=== PATIENT | male | born 1970 | race Caucasian/White ===

== ENCOUNTER 2019-01-19 16:46 | Emergency (ER) | payer BC ==
--- NOTE | 2019-01-19 17:08 | EDM.PDOC ---
ED HPI GENERAL MEDICAL PROBLEM - General Chief Complaint: Lower Extremity Injury/Pain Stated Complaint: TOE NAIL HALF OF ON RT FT Time Seen by Provider: 01/19/19 16:48 - History of Present Illness INITIAL COMMENTS - FREE TEXT/NARRATIVE: HISTORY AND PHYSICAL: History of present illness: Patient 48-year-old male presents with concern of near avulsion of the nail of the first digit of his right foot that occurred when he stubbed his toe he denies any other significant trauma other than the elevation of the nail which clearly has had a significant fungal infection that has been problematic for patient he is eager to have this nail removed. Review of systems: As per history of present illness and below otherwise all systems reviewed and negative. Past medical history: As per history of present illness and as reviewed below otherwise noncontributory. Surgical history: As per history of present illness and as reviewed below otherwise noncontributory. Social history: No reported history of drug or alcohol abuse. Family history: As per history of present illness and as reviewed below otherwise noncontributory. Physical exam: HEENT: Atraumatic, normocephalic, pupils reactive, negative for conjunctival pallor or scleral icterus, mucous membranes moist, throat clear, neck supple, nontender, trachea midline. Lungs: Clear to auscultation, breath sounds equal bilaterally, chest nontender. Heart: S1S2, regular, negative for clicks, rubs, or JVD. Abdomen: Soft, nondistended, nontender. Negative for masses or hepatosplenomegaly. Negative for costovertebral tenderness. Pelvis: Stable nontender. Genitourinary: Deferred. Rectal: Deferred. Extremities: Obvious fungal infection noted on the first nail of his right foot with significant elevation in near total avulsion. Neurovascular exam is unremarkable Neuro: Awake, alert, oriented. Cranial nerves II through XII unremarkable. Cerebellum unremarkable. Motor and sensory unremarkable throughout. Exam nonfocal. Diagnostics: None Therapeutics: Patient had a digital block with 1% lidocaine nail was removed the first digit wound was irrigated and dressed with a bulky bacitracin dressing Impression: #1 right foot injury with nail avulsion Definitive disposition and diagnosis as appropriate pending reevaluation and review of above. Right Great Toe Pain Score (Numeric/FACES): 4 - Related Data Allergies Allergy/AdvReac Type Severity Reaction Status Date / Time No Known Allergies Allergy Verified 01/19/19 17:01 Home Meds: Home Meds . [No Known Home Meds] 01/19/19 [History] Past Medical History - Past Surgical History GI Surgical History: Reports: Appendectomy Social & Family History - Tobacco Use Smoking Status *Q: Current Every Day Smoker Years of Tobacco use: 20 Packs/Tins Daily: 1 - Alcohol Use Days Per Week of Alcohol Use: 4 Number of Drinks Per Day: 3 Total Drinks Per Week: 12 - Recreational Drug Use Recreational Drug Use: No Review of Systems - Review of Systems Review Of Systems: ROS reveals no pertinent complaints other than HPI. ED EXAM, GENERAL - Physical Exam Exam: See Below (The dictation) Course - Vital Signs Last Recorded V/S: Last Vital Signs Temp 36.2 C 01/19/19 16:58 Pulse 102 H 01/19/19 16:58 Resp 16 01/19/19 16:58 BP 168/104 H 01/19/19 16:58 Pulse Ox 93 L 01/19/19 16:58 - Orders/Labs/Meds Meds: Medications Discontinued Medications Generic Name Dose Route Start Last Admin Trade Name Karly PRN Reason Stop Dose Admin Lidocaine HCl Confirm 01/19/19 17:01 Xylocaine-Mpf 1% Administered 01/19/19 17:02 Dose 10 mls @ as directed .ROUTE .STK-MED ONE Lidocaine HCl 10 ml 01/19/19 17:00 Xylocaine-Mpf 1% INJECT 01/19/19 17:01 ONETIME ONE Departure - Departure Time of Disposition: 17:07 Disposition: Home, Self-Care 01 Condition: Good Clinical Impression: Foot injury, Nail avulsion of toe - Discharge Information Referrals: PCP,None [Primary Care Provider] - Additional Instructions: The following information is given to patients seen in the emergency department who are being discharged to home. This information is to outline your options for follow-up care. We provide all patients seen in our emergency department with a follow-up referral. The need for follow-up, as well as the timing and circumstances, are variable depending upon the specifics of your emergency department visit. If you don't have a primary care physician on staff, we will provide you with a referral. We always advise you to contact your personal physician following an emergency department visit to inform them of the circumstance of the visit and for follow-up with them and/or the need for any referrals to a consulting specialist. The emergency department will also refer you to a specialist when appropriate. This referral assures that you have the opportunity for followup care with a specialist. All of these measure are taken in an effort to provide you with optimal care, which includes your followup. Under all circumstances we always encourage you to contact your private physician who remains a resource for coordinating your care. When calling for followup care, please make the office aware that this follow-up is from your recent emergency room visit. If for any reason you are refused follow-up, please contact the [facility] emergency department at and asked to speak to the emergency department charge nurse. [facility] - Podiatry [address] [place] [id number] Fax: [phone] Follow-up podiatry as discussed in care as discussed will consist abdominal hysterectomy return as needed as discussed
[2019-01-19] MEDS ORDERED: Bacitracin Oint 1 GM U/D Packet TOP ONE (17:16)
== END 2019-01-19 18:16 | disposition home or self-care (01) ==
LOC: MW.ED 16:46
DX: S91.201A Unspecified open wound of right great toe with damage to nail, initial encounter (principal); F17.210 Nicotine dependence, cigarettes, uncomplicated; W22.8XXA Striking against or struck by other objects, initial encounter
CPT/HCPCS: 11730; 99282; J2001

== ENCOUNTER 2019-07-05 07:04 | Day surgery (SDC) | payer BC ==
[~2019-07-05 07:04] MED LIST: Lactated Ringers 1,000 ML IV SCH; ceFAZolin 2 GM in Premix Bag 1 BAG IV SCH
[2019-07-05] MEDS ORDERED: ceFAZolin 1 GM Vial ONE ×2 (07:21→07:46)
[2019-07-05] MEDS ORDERED: Bupivacaine 0.5% 10 ML SDV ONE (07:21)
[2019-07-05] MEDS ORDERED: Propofol 200 MG/20 ML SDV ONE (07:22)
[2019-07-05] MEDS ORDERED: Midazolam 1 MG/ML 2 ML SDV ONE (07:22)
[2019-07-05] MEDS ORDERED: fentaNYL 100 MCG/2 ML SDV ONE (07:22)
[2019-07-05] MEDS ORDERED: Dexamethasone 4 MG/ML 5 ML MDV ONE (07:25)
[2019-07-05] MEDS ORDERED: Ondansetron 4 MG/2 ML SDV ONE (07:25)
--- NOTE | 2019-07-05 07:32 | PCM.PREANE ---
Preanesthetic Assessment - Anesthesia/Transfusion/Family Hx Anesthesia History: Prior Anesthesia Without Reaction Family History of Anesthesia Reaction: No Transfusion History: No Prior Transfusion(s) - Review of Systems General: No Symptoms Pulmonary: No Symptoms Cardiovascular: No Symptoms Gastrointestinal: No Symptoms Neurological: No Symptoms Other: Reports: None - Physical Assessment Vital Signs: Last Vital Signs Temp 97.5 F 07/05/19 07:19 Pulse 102 H 07/05/19 07:19 Resp 14 07/05/19 07:19 BP 133/87 07/05/19 07:19 Pulse Ox 96 07/05/19 07:19 Height: 5 ft 8 in Weight: 79.379 kg ASA Class: 2 Mental Status: Alert & Oriented x3 Airway Class: Mallampati = 2 Dentition: Reports: Normal Dentition ROM/Head Extension: Full Lungs: Clear to Auscultation, Normal Respiratory Effort Cardiovascular: Regular Rate, Regular Rhythm - Allergies Allergies/Adverse Reactions: Allergies Allergy/AdvReac Type Severity Reaction Status Date / Time No Known Allergies Allergy Verified 06/30/19 09:39 - Blood Blood Available: No - Anesthesia Plan Pre-Op Medication Ordered: None - Acknowledgements Pt an Appropriate Candidate for the Planned Anesthesia: Yes Alternatives and Risks of Anesthesia Discussed w Pt/Guardian: Yes Pt/Guardian Understands and Agrees with Anesthesia Plan: Yes Additional Comments: PMH: htn under good controll PLAN: GA, prob LMA, ETT if surgeon requests PreAnesthesia Questionnaire HEENT History: Reports: Other (See Below) Other HEENT History: wears glasses Cardiovascular History: Reports: Hypertension Respiratory History: Reports: None Gastrointestinal History: Reports: GERD Genitourinary History: Reports: None Musculoskeletal History: Reports: None Neurological History: Reports: Concussion Psychiatric History: Reports: None Endocrine/Metabolic History: Reports: None Hematologic History: Reports: None Immunologic History: Reports: None Oncologic (Cancer) History: Reports: None Dermatologic History: Reports: None - Past Surgical History Head Surgeries/Procedures: Reports: None HEENT Surgical History: Reports: None Cardiovascular Surgical History: Reports: None Respiratory Surgical History: Reports: None GI Surgical History: Reports: Appendectomy, Colonoscopy Male Surgical History: Reports: None Endocrine Surgical History: Reports: None Neurological Surgical History: Reports: None Musculoskeletal Surgical History: Reports: None Oncologic Surgical History: Reports: None Dermatological Surgical History: Reports: None - SUBSTANCE USE Smoking Status *Q: Former Smoker Tobacco Use Within Last Twelve Months: Cigarettes, Other (See Below) Days Per Week of Alcohol Use: 7 Number of Drinks Per Day: 4 Total Drinks Per Week: 28 - HOME MEDS Home Medications: Home Meds Losartan/Hydrochlorothiazide [Losartan-HCTZ 100-25 MG] 1 tab PO DAILY 06/30/19 [ History] Nicotine Polacrilex [Nicotine Lozenge] 1 lozenge PO ASDIRECTED PRN 06/30/19 [ History] Sildenafil Citrate 1 tab PO ASDIRECTED PRN 06/30/19 [History] Calcium Carbonate [Antacid] 1 tab PO ASDIRECTED 07/02/19 [History] - CURRENT (IN HOUSE) MEDS Current Meds: Current Medications Cefazolin Sodium/Dextrose 2 gm (/ Premix) 50 mls @ 100 mls/hr IV ONETIME DAVID Lactated Ringer's (Ringers, Lactated) 1,000 mls @ 125 mls/hr IV ASDIRECTED DAVID Last Admin: 07/05/19 07:27 Dose: 125 mls/hr Discontinued Medications Bupivacaine HCl (Sensorcaine-Mpf 0.5%) Confirm Administered Dose 10 ml .ROUTE .STK-MED ONE Stop: 07/05/19 07:22 Cefazolin Sodium (Ancef) Confirm Administered Dose 1 gm .ROUTE .STK-MED ONE Stop: 07/05/19 07:22 Dexamethasone (Dexamethasone) Confirm Administered Dose 20 mg .ROUTE .STK-MED ONE Stop: 07/05/19 07:26 Fentanyl (Sublimaze) Confirm Administered Dose 200 mcg .ROUTE .STK-MED ONE Stop: 07/05/19 07:23 Lidocaine HCl (Xylocaine-Mpf 1%) Confirm Administered Dose 5 ml .ROUTE .STK-MED ONE Stop: 07/05/19 07:26 Midazolam HCl (Versed 1 Mg/Ml) Confirm Administered Dose 2 mg .ROUTE .STK-MED ONE Stop: 07/05/19 07:23 Ondansetron HCl (Zofran) Confirm Administered Dose 4 mg .ROUTE .STK-MED ONE Stop: 07/05/19 07:26 Propofol (Diprivan 20 Ml) Confirm Administered Dose 200 mg .ROUTE .STK-MED ONE Stop: 07/05/19 07:23
[2019-07-05] MEDS ORDERED: Sodium Chloride 0.9% 20 ML ONE (07:46)
[2019-07-05] MEDS ORDERED: Phenylephrine/Normal Saline 100 MCG/ML 10 ML Syringe ONE (08:18)
[2019-07-05] MEDS ORDERED: Atropine 0.1 MG/ML 10 ML Syringe IVPUSH PRN ×2 (08:43)
[2019-07-05] MEDS ORDERED: EPINEPHrine 1:10,000 1 MG/10 ML Syringe IVPUSH PRN (08:43)
[2019-07-05] MEDS ORDERED: Naloxone 0.4 MG/ML Syringe IVPUSH PRN (08:43)
[2019-07-05] MEDS ORDERED: 50% Dextrose in Water 50 ML Syringe IVPUSH PRN (08:43)
[2019-07-05] MEDS ORDERED: Albuterol 0.083% 2.5 MG/3 ML Neb Soln NEB PRN (08:43)
[2019-07-05] MEDS ORDERED: fentaNYL 100 MCG/2 ML SDV IVPUSH PRN (08:43)
[2019-07-05] MEDS ORDERED: Acetaminophen/HYDROcodone 325-5 MG Tab PO PRN (09:28)
[2019-07-05] MEDS ORDERED: Lactated Ringers 1,000 ML IV SCH (09:30)
--- NOTE | 2019-07-05 09:39 | PCM.OPNOTE ---
- General Post-Op/Procedure Note Date of Surgery/Procedure: 07/05/19 Operative Procedure(s): Repair of direct right inguinal hernia with large Bard PerFix plug and patch Pre Op Diagnosis: Reducible right inguinal hernia Post-Op Diagnosis: Direct right inguinal hernia Anesthesia Technique: General LMA (ASA II) Primary Surgeon: Herrera Valdez Printing Mechanist: Ольга Hughes Fluid Replacement, Intraop: 1,600 EBL in mLs: 100 Condition: Good Free Text/Narrative:: DICTATION [id number] CPT CODE 57267
--- NOTE | 2019-07-05 09:56 | PCM.POSTAN ---
POST ANESTHESIA ASSESSMENT - MENTAL STATUS Mental Status: Alert, Oriented - VITAL SIGNS Vital Signs: Last Vital Signs Temp 97.9 F 07/05/19 09:29 Pulse 94 07/05/19 09:49 Resp 10 L 07/05/19 09:49 BP 122/81 07/05/19 09:49 Pulse Ox 95 07/05/19 09:49 - RESPIRATORY Respiratory Status: Respiratory Rate WNL, Airway Patent, O2 Saturation Stable - CARDIOVASCULAR CV Status: Pulse Rate WNL, Blood Pressure Stable - GASTROINTESTINAL GI Status: No Symptoms - POST OP HYDRATION Hydration Status: Adequate & Stable
--- NOTE | 2019-07-05 10:16 | OR ---
SURGEON: Herrera Valdez M.D. DATE OF PROCEDURE: 07/05/2019 OPERATION PERFORMED: Repair of direct right inguinal hernia with large Bard PerFix plug and patch. PRIMARY SURGEON: Herrera Valdez MD. MFT: physiotherapy assistant: Dr. Hughes, PGY2. ANESTHESIA: General LMA ASA CLASSIFICATION: II. PREOPERATIVE DIAGNOSIS: Reducible right inguinal hernia. POSTOPERATIVE DIAGNOSIS: Reducible right inguinal hernia. ESTIMATED BLOOD LOSS: 100 mL. INTRAOPERATIVE FLUID REPLACEMENT: 1600 mL of crystalloid. DESCRIPTION OF PROCEDURE: The patient was taken to the operating room, placed on the operating table in the supine position. Sequential compression boots were placed. Time-out was called for appropriate identification of the patient and procedure. Following satisfactory attainment of general anesthesia with placement of an LMA, the abdomen was prepped with DuraPrep solution and sterile drapes were applied. A skin incision was marked out in the right inguinal crease and infiltrated with 0.5% Marcaine solution. The skin incision was made and deepened through the subcutaneous tissue obtaining hemostasis with the use of electrocautery. Dissection was carried down to the external oblique fascia. This was opened in the direction of its fibers. Care was taken to identify and preserve the ilioinguinal nerve which was retracted out of harm's way. With that accomplished, it was obvious the defect was direct. The cord was mobilized and encircled with a [place] drain. The hernia was then dissected away and reduced. A large Bard PerFix plug and patch was brought to the operating table. This was soaked in 1% Ancef solution. The plug was placed into the medial defect and secured with interrupted 0 Ethibond sutures. The patch was placed over this and secured medially and inferiorly to Sonny ligament, transitioning to the inguinal ligament, and superiorly into the transversalis fascia. The wings were brought around the cord laterally. There was some bleeding coming from underneath the inguinal canal and this was controlled with a 3-0 Prolene suture. Care was taken to inspect this area and hold pressure for a minimum of 2 minutes. There was no further bleeding noted. The wound was then irrigated with 1% Ancef solution. All Ethibond sutures had been tied down and the wings brought around the cord laterally. Prior to tying the lateral stitch, the patient was given a Valsalva maneuver to 30 cm of water. The repair was felt solid. The lateral suture was then secured. The cord and ilioinguinal nerve were returned to their anatomic position. The external oblique fascia was closed with running 3-0 Vicryl. Subcutaneous tissue was closed with 3-0 Vicryl through Fred's fascia and the skin edges reapproximated with subcuticular 4-0 Monocryl. The wound was then Steri-Stripped and dressed with a sterile Tegaderm pad. Sponge, needle, and instrument counts were all correct. Following emergence from anesthesia and extubation, the patient was taken to recovery room in stable condition. JAYLYN AMADOR /[id number]
--- NOTE | 2019-07-05 12:05 | PCM48HPAN ---
Post Anesthesia Note - EVALUATION WITHIN 48HRS OF ANESTHETIC Vital Signs in Normal Range: Yes Patient Participated in Evaluation: Yes Respiratory Function Stable: Yes Airway Patent: Yes Cardiovascular Function Stable: Yes Hydration Status Stable: Yes Pain Control Satisfactory: Yes Nausea and Vomiting Control Satisfactory: Yes Mental Status Recovered: Yes Vital Signs: Last Vital Signs Temp 98.6 F 07/05/19 10:00 Pulse 90 07/05/19 11:15 Resp 14 07/05/19 11:15 BP 135/73 07/05/19 11:15 Pulse Ox 95 07/05/19 11:15
== END 2019-07-05 12:12 | disposition home or self-care (01) ==
LOC: MW.SDS 07:04
PROVIDERS: ATTEND Surgery
DX: K40.90 Unilateral inguinal hernia, without obstruction or gangrene, not specified as recurrent (principal); I10 Essential (primary) hypertension; Z79.899 Other long term (current) drug therapy; Z90.49 Acquired absence of other specified parts of digestive tract; Z87.891 Personal history of nicotine dependence
CPT/HCPCS: 49505; A9270; C1781; J0690; J1100; J2001; J2250; J2370; J2405; J2704; J3010; J3490; J7120; 00830

== ENCOUNTER 2020-08-13 16:20 | Emergency (ER) | payer OTHER, BC ==
--- NOTE | 2020-08-13 16:41 | EDM.PDOC ---
ED HPI GENERAL MEDICAL PROBLEM - General Chief Complaint: Lower Extremity Injury/Pain Stated Complaint: FELL INJURY RT LEG HIP AREA Time Seen by Provider: 08/13/20 16:31 - History of Present Illness INITIAL COMMENTS - FREE TEXT/NARRATIVE: History of present illness: [] The patient says he caught his foot on something and tripped. He fell downstairs. He rolled down a flight of stairs and landed at the bottom with a function at that point he was somewhat dazed and says his right hip hurt. He complains of pain in the right hip. He does not have any other significant pain except low anterior abdomen. The patient is not on a blood thinner. He denies head injury or neck injury. He denies injury to his chest or trunk. Review of systems: As per history of present illness and below otherwise all systems reviewed and negative. Past medical history: As per history of present illness and as reviewed below otherwise noncontributory. Surgical history: As per history of present illness and as reviewed below otherwise noncontributory. Social history: No reported history of drug or alcohol abuse. Family history: As per history of present illness and as reviewed below otherwise noncontributory. Physical exam: Constitutional - well developed, well-nourished and in no acute distress HEENT - normocephalic, no evidence of trauma - external nose and mouth normal - no mass in neck and no JVD - mucosae moist EYES - full EOM, PERRL, no icterus - no evidence of inflammation, injection, or drainage Respiratory - no respiratory distress, equal bilateral expansion, lungs clear to auscultation and no abnormal lung sounds Cardiovascular - Regular Rhythm with S1 and S2 appreciated and no murmur, gallop or rub. GI - abdomen soft without distension or organomegaly - normal bowel sounds - no guard or rebound Musculoskeletal tender right anterior pelvis and pain with range of motion of the right hip. Pain with attempted weightbearing on the right hip. No gross deformity of long bones or joints - no tenderness, swelling or edema Neurologic - Alert and oriented times four - CN II-XII grossly intact - motor sensory and coordination symmetrically normal Psychiatric - appropriate mood and affect with normal thought content Hematologic - No petechiae or purpura - mucosa appropriate color and sclera not pale - normal nail bed color and refill Integument -abrasions on the right hand and abrasions on the right lower leg otherwise no rash or evidence of trauma - normal turgor Diagnostics: [] Therapeutics: [] Impression: [] Plan: [] Definitive disposition and diagnosis as appropriate pending reevaluation and review of above. right hip Pain Score (Numeric/FACES): 10 - Related Data Allergies Allergy/AdvReac Type Severity Reaction Status Date / Time No Known Allergies Allergy Verified 08/13/20 16:34 Home Meds: Home Meds . [No Known Home Meds] 08/13/20 [History] Past Medical History HEENT History: Reports: Other (See Below) Other HEENT History: wears glasses Cardiovascular History: Reports: Hypertension Respiratory History: Reports: None Gastrointestinal History: Reports: GERD Genitourinary History: Reports: None Musculoskeletal History: Reports: None Neurological History: Reports: Concussion Psychiatric History: Reports: None Endocrine/Metabolic History: Reports: None Hematologic History: Reports: None Immunologic History: Reports: None Oncologic (Cancer) History: Reports: None Dermatologic History: Reports: None - Past Surgical History Head Surgeries/Procedures: Reports: None HEENT Surgical History: Reports: None Cardiovascular Surgical History: Reports: None Respiratory Surgical History: Reports: None GI Surgical History: Reports: Appendectomy, Colonoscopy Male Surgical History: Reports: None Endocrine Surgical History: Reports: None Neurological Surgical History: Reports: None Musculoskeletal Surgical History: Reports: None Oncologic Surgical History: Reports: None Dermatological Surgical History: Reports: None Review of Systems - Review of Systems Review Of Systems: Comprehensive ROS is negative, except as noted in HPI. ED EXAM, GENERAL - Physical Exam Exam: See Below Free Text/Narrative:: Physical exam as in the HPI #1 Interpretation EKG Interpretation Comments: G sinus rhythm heart rate 96 GA 142 QT 486 axis -[address] or T changes suggesting acute injury or ischemia. Impression no acute injury Course - Vital Signs Text/Narrative:: The patient remained stable by the fact that he has comminuted pelvic fracture including some diastases of the pubic symphysis. Discussed with Dr. Mai in the ER at [facility] which is our trauma receiving hospital. The patient will be flown to [facility]. The CT was not obtained at this point nor a retrograde urethrogram PE. The patient certainly has some possibility of internal bleeding and/or urethral damage because of the location of the knee injury. For this reason I will fly him to [facility] for trauma evaluation. A binder was placed and the patient had neurovascular structures intact distally. Air transport arranged for this fracture that involved a comminuted pubic ramus fracture and a acetabulum. Last Recorded V/S: Last Vital Signs Temp 35.4 C L 08/13/20 16:34 Pulse 99 08/13/20 16:34 Resp 19 08/13/20 16:34 BP 106/58 L 08/13/20 16:34 Pulse Ox 95 08/13/20 16:34 - Orders/Labs/Meds Orders: Active Orders 24 hr Category Date Time Status EKG 12 Lead [EKG Documentation Completion] [RC] STAT Care 08/13/20 17:15 Active Abdomen Pelvis w Cont [CT] Stat Exams 08/13/20 17:10 Ordered CORONAVIRUS COVID-19 JANETTE [MOLEC] Stat Lab 08/13/20 17:16 Received TYPE AND SCREEN [BBK] Stat Lab 08/13/20 17:18 Received UA W/ESTER RFLX IF INDICATED [URIN] Stat Lab 08/13/20 16:49 Ordered Lactated Ringers [Ringers, Lactated] 1,000 ml Med 08/13/20 17:15 Active IV ASDIRECTED Sodium Chloride 0.9% [Saline Flush] Med 08/13/20 17:12 Active 10 ml FLUSH ASDIRECTED PRN Sodium Chloride 0.9% [Saline Flush] Med 08/13/20 17:12 Active 2.5 ml FLUSH ASDIRECTED PRN Saline Lock Insert [OM.PC] Stat Oth 08/13/20 17:12 Ordered Medication Orders Lactated Ringer's (Ringers, Lactated) 1,000 mls @ 125 mls/hr IV ASDIRECTED DAVID Last Admin: 08/13/20 17:16 Dose: 125 mls/hr Documented by: ROSHNI Sodium Chloride (Saline Flush) 10 ml FLUSH ASDIRECTED PRN PRN Reason: Keep Vein Open Last Admin: 08/13/20 17:18 Dose: 10 ml Documented by: ROSHNI Sodium Chloride (Saline Flush) 2.5 ml FLUSH ASDIRECTED PRN PRN Reason: Keep Vein Open Last Admin: 08/13/20 17:18 Dose: 2.5 ml Documented by: ROSHNI Labs: Laboratory Tests 08/13/20 08/13/20 Range/Units 17:13 17:13 WBC 25.80 H (4.0-11.0) K/uL RBC 4.69 (4.50-5.90) M/uL Hgb 14.4 (13.0-17.0) g/dL Hct 43.0 (38.0-50.0) % MCV 91.7 (80.0-98.0) fL MCH 30.7 (27.0-32.0) pg MCHC 33.5 (31.0-37.0) g/dL RDW Std Deviation 45.1 (28.0-62.0) fl RDW Coeff of Deloris 14 (11.0-15.0) % Plt Count 240 (150-400) K/uL MPV 11.30 (7.40-12.00) fL Neut % (Auto) 86.1 H (48.0-80.0) % Lymph % (Auto) 4.8 L (16.0-40.0) % [place] % (Auto) 9.0 (0.0-15.0) % Eos % (Auto) 0.0 (0.0-7.0) % Baso % (Auto) 0.1 (0.0-1.5) % Neut # (Auto) 22.2 H (1.4-5.7) K/uL Lymph # (Auto) 1.2 (0.6-2.4) K/uL [place] # (Auto) 2.3 H (0.0-0.8) K/uL Eos # (Auto) 0.0 (0.0-0.7) K/uL Baso # (Auto) 0.0 (0.0-0.1) K/uL Nucleated RBC % 0.0 /100WBC Nucleated RBCs # 0 K/uL Sodium 140 (136-148) mmol/L Potassium 2.9 L (3.5-5.1) mmol/L Chloride 103 (98-107) mmol/L Carbon Dioxide 24.1 (21.0-32.0) mmol/L BUN 19 H (7.0-18.0) mg/dL Creatinine 1.4 H (0.8-1.3) mg/dL Est Cr Clr Drug Dosing 59.71 mL/min Estimated GFR (MDRD) 53.2 ml/min Glucose 136 H (74-106) mg/dL Calcium 9.0 (8.5-10.1) mg/dL Total Bilirubin 0.4 (0.2-1.0) mg/dL AST 49 H (15-37) IU/L ALT 40 (14-63) IU/L Alkaline Phosphatase 61 (46-116) U/L Total Protein 6.9 (6.4-8.2) g/dL Albumin 3.7 (3.4-5.0) g/dL Globulin 3.2 (2.6-4.0) g/dL Albumin/Globulin Ratio 1.2 (0.9-1.6) Meds: Medications Generic Name Dose Route Start Last Admin Trade Name Freq PRN Reason Stop Dose Admin Lactated Ringer's 1,000 mls @ 125 mls/hr 08/13/20 17:15 08/13/20 17:16 Ringers, Lactated IV 125 mls/hr ASDIRECTED DAVID Administration Sodium Chloride 10 ml 08/13/20 17:12 08/13/20 17:18 Saline Flush FLUSH 10 ml ASDIRECTED PRN Administration Keep Vein Open Sodium Chloride 2.5 ml 08/13/20 17:12 08/13/20 17:18 Saline Flush FLUSH 2.5 ml ASDIRECTED PRN Administration Keep Vein Open Discontinued Medications Generic Name Dose Route Start Last Admin Trade Name Freq PRN Reason Stop Dose Admin Morphine Sulfate 5 mg 08/13/20 16:47 08/13/20 16:59 Morphine IM 08/13/20 16:48 5 mg ONETIME ONE Administration Ondansetron HCl 4 mg 08/13/20 16:48 08/13/20 16:59 Zofran Odt PO 08/13/20 16:49 4 mg ONETIME ONE Administration Departure - Departure Time of Disposition: 18:02 (Ambulance to trauma center) Disposition: DC/Tfer to Acute Hospital 02 Condition: Good Clinical Impression: Pelvis fracture, right, Hypokalemia - Discharge Information Referrals: PCP,None [Primary Care Provider] - Forms: ED Department Discharge Sepsis Event Note (ED) - Evaluation Sepsis Screening Result: No Definite Risk - Focused Exam Vital Signs: Vital Signs Temp Pulse Resp BP Pulse Ox 08/13/20 16:34 35.4 C L 99 19 106/58 L 95 - My Orders Last 24 Hours: My Active Orders 08/13/20 16:49 UA W/ESTER RFLX IF INDICATED [URIN] Stat 08/13/20 17:10 Abdomen Pelvis w Cont [CT] Stat 08/13/20 17:12 Sodium Chloride 0.9% [Saline Flush] 10 ml FLUSH ASDIRECTED PRN Sodium Chloride 0.9% [Saline Flush] 2.5 ml FLUSH ASDIRECTED PRN Saline Lock Insert [OM.PC] Stat 08/13/20 17:15 EKG 12 Lead [EKG Documentation Completion] [RC] STAT Lactated Ringers [Ringers, Lactated] 1,000 ml IV ASDIRECTED 08/13/20 17:16 CORONAVIRUS COVID-19 JANETTE [MOLEC] Stat 08/13/20 17:18 TYPE AND SCREEN [BBK] Stat - Assessment/Plan Last 24 Hours: My Active Orders 08/13/20 16:49 UA W/ESTER RFLX IF INDICATED [URIN] Stat 08/13/20 17:10 Abdomen Pelvis w Cont [CT] Stat 08/13/20 17:12 Sodium Chloride 0.9% [Saline Flush] 10 ml FLUSH ASDIRECTED PRN Sodium Chloride 0.9% [Saline Flush] 2.5 ml FLUSH ASDIRECTED PRN Saline Lock Insert [OM.PC] Stat 08/13/20 17:15 EKG 12 Lead [EKG Documentation Completion] [RC] STAT Lactated Ringers [Ringers, Lactated] 1,000 ml IV ASDIRECTED 08/13/20 17:16 CORONAVIRUS COVID-19 JANETTE [MOLEC] Stat 08/13/20 17:18 TYPE AND SCREEN [BBK] Stat
[2020-08-13] MEDS ORDERED: Morphine 10 MG/ML Syringe IM ONE (16:47)
[2020-08-13] MEDS ORDERED: Ondansetron 4 MG Tab.DIS PO ONE (16:48)
[2020-08-13] MEDS ORDERED: Sodium Chloride 0.9% 2.5 ML Syringe FLUSH PRN (17:12)
[2020-08-13] MEDS ORDERED: Sodium Chloride 0.9% 10 ML Syringe FLUSH PRN (17:12)
[2020-08-13] MEDS ORDERED: Lactated Ringers 1,000 ML IV SCH (17:15)
[2020-08-13 17:41] LABS: CARBON DIOXIDE,CO2 24.1 mmol/L (21.0-32.0); POTASSIUM,K 2.9 mmol/L (3.5-5.1)
--- NOTE | 2020-08-13 17:43 | CR ---
Indication: Trauma. Technique: AP portable view of the chest. Comparison: None Findings: The heart is normal in size. The lungs are clear. No infiltrate, pleural effusion, or pneumothorax is identified. Impression: No acute cardiopulmonary process Dictated by Michelle Valladares MD @ Aug 13 2020 5:42PM Signed by Dr. Michelle Valladares @ Aug 13 2020 5:42PM
--- NOTE | 2020-08-13 17:43 | CR ---
Indication: Fall. Technique: AP view of the pelvis. Comparison: None Findings: Fracture of the acetabulum is identified. A comminuted fracture of the right inferior pubic ramus is identified. Both femoral heads are seated within the acetabula. Impression: Right-sided pelvic fractures. Dictated by Michelle Valladares MD @ Aug 13 2020 5:41PM Signed by Dr. Michelle Valladares @ Aug 13 2020 5:42PM
[2020-08-13] MEDS ORDERED: Potassium Chloride 20 MEQ Tab.ER ONE (18:02)
[2020-08-13] MEDS ORDERED: Potassium Chloride 20 MEQ Tab.ER PO ONE (18:04)
== END 2020-08-13 18:25 ==
LOC: MW.ED 16:20
DX: S32.401A Unspecified fracture of right acetabulum, initial encounter for closed fracture (principal); S32.591A Other specified fracture of right pubis, initial encounter for closed fracture; U07.1 COVID-19; I10 Essential (primary) hypertension; W10.9XXA Fall (on) (from) unspecified stairs and steps, initial encounter
CPT/HCPCS: 36415; 71045; 73502; 80053; 85025; 86850; 86900; 86901; 87635; 93005; 96372; 99285; A9270; J2270; J7120; 93010; 99284; U0002

== ENCOUNTER 2020-12-12 11:16 | Day surgery (SDC) | payer OTHER, BC ==
[2020-12-12] MEDS ORDERED: Ropivacaine 0.5% 5 MG/ML 30 ML SDV INJECT ONE (13:00)
[2020-12-12] MEDS ORDERED: Betamethasone Acetate/Betamethasone Sod Phosphate 30 MG/5 ML MDV EPIDUR ONE (13:00)
[2020-12-12] MEDS ORDERED: Lidocaine 2% 5 ML SDV INJECT ONE (13:00)
[2020-12-12] MEDS ORDERED: Iopamidol 200-M 10 ML vial ITHECAL ONE (13:00)
--- NOTE | 2020-12-12 19:51 | OR ---
SURGEON: Mary Hoskins D.O. DATE OF PROCEDURE: 12/12/2020 PRIMARY SURGEON: Mary Hoskins D.O. ASSISTANTS: OR staff present: 1. Edmundo Hickman RN. 2. Ramesh Gaming RN. 3. Aldo Mann RT. WOUND CLASS: I. PREOPERATIVE DIAGNOSES: 1. Lumbosacral degenerative disk disease. 2. Left L5-S1 radiculopathy. 3. Chronic low back pain status post trauma. 4. L5-S1 transitional vertebrae. 5. L5-S1 spondylolisthesis. 6. L5-S1 radiculopathy. POSTOPERATIVE DIAGNOSES: 1. Lumbosacral degenerative disk disease. 2. Left L5-S1 radiculopathy. 3. Chronic low back pain status post trauma. 4. L5-S1 transitional vertebrae. 5. L5-S1 spondylolisthesis. 6. L5-S1 radiculopathy. PROCEDURES PERFORMED: 1. Left transforaminal epidural steroid injection at S1. 2. Fluoroscopic guidance for needle placement. 3. Local with oral Valium for sedation. SCREENING QUESTIONS: The patient answered "no" to all of the following questions: 1. Are you allergic to iodine, Betadine or latex? 2. Do you have a bleeding disorder? 3. Do you have any joint replacements, heart valve replacements, or a pacemaker? 4. Are you allergic to anti-inflammatories or blood thinners? 5. Do you have any current local or systemic infections? DESCRIPTION OF PROCEDURE: The patient had the procedure thoroughly explained including risks, benefits and alternatives. Consent was signed in my clinic indicating understanding and willingness to proceed. The patient presented to [facility] [place] where the patient was escorted to the dressing room to disrobe and change into a hospital gown. Preoperative vital signs were taken and stable. The patient reported that Valium was taken prior to the procedure. The patient was brought to the procedure room and placed in the prone position on the table. A pillow was placed under the abdomen in order to flatten the lumbar lordosis. The back was prepped with ChloraPrep and sterilely draped. All personnel in the operating room were dressed in appropriate attire including surgical scrubs, head and shoe covers. This was to ensure sterility while in the treatment room. During the time fluoroscopy was in use, all personnel in the operating room wore lead ware with thyroid collars. Sterile technique was used during the procedure. The fluoroscope was placed for the left S1 transforaminal epidural steroid injection. There was no sign of infection at the skin site for needle insertion. The skin was anesthetized with 2% lidocaine with a 27 gauge 1-1/2 inch needle. Then a 22 gauge 3-1/2 inch spinal needle, advanced to the left S1 foramen. Under direct fluoroscopic guidance needle position was verified in three views; AP, oblique and lateral, with 0.2 cubic centimeters increments of Isovue-200 dye. No intravascular flow pattern was observed under live fluoroscopy. Then 12 milligrams of Celestone and local was slowly injected after negative aspiration of heme, cerebrospinal fluid and no paresthesias were noted. The needle was cleared prior to removal from the skin. No adverse reactions were noted. The patient was brought to the recovery room awake and in good condition by my staff. The patient was monitored and discharge instructions were given after a brief stay in the recovery area. Both oral and written discharge and follow up instructions were given. The patient will follow up in the clinic in 3-4 weeks post procedure to evaluate the efficacy. The patient verbalized understanding including understanding of those signs and symptoms that would require emergency care and knows how to contact the office if there are any problems or questions in the meantime. PREOPERATIVE PAIN: 6/10. POSTOPERATIVE PAIN: 0/10. PLAN: Follow up in the pain clinic in 3 weeks. FERNANDO / PERRY /[id number] LISA
== END 2020-12-12 13:43 ==
LOC: MW.SDS 11:16
PROVIDERS: ATTEND Anesthesiology
DX: G89.29 Other chronic pain (principal); M51.17 Intervertebral disc disorders with radiculopathy, lumbosacral region; Q76.49 Other congenital malformations of spine, not associated with scoliosis; M47.26 Other spondylosis with radiculopathy, lumbar region; M51.26 Other intervertebral disc displacement, lumbar region; M79.18 Myalgia, other site; M53.3 Sacrococcygeal disorders, not elsewhere classified; Z87.891 Personal history of nicotine dependence; Z90.49 Acquired absence of other specified parts of digestive tract; Z98.890 Other specified postprocedural states; Z79.899 Other long term (current) drug therapy
CPT/HCPCS: 64483; J0702; J2795; Q9966

== ENCOUNTER 2021-01-16 12:53 | Day surgery (SDC) | payer OTHER, BC ==
[2021-01-16] MEDS ORDERED: Ropivacaine 0.5% 5 MG/ML 30 ML SDV INJECT ONE (14:00)
[2021-01-16] MEDS ORDERED: Lidocaine 2% 5 ML SDV INJECT ONE (14:00)
[2021-01-16] MEDS ORDERED: Betamethasone Acetate/Betamethasone Sod Phosphate 30 MG/5 ML MDV EPIDUR ONE (14:00)
[2021-01-16] MEDS ORDERED: Iopamidol 200-M 10 ML vial ITHECAL ONE (14:00)
--- NOTE | 2021-01-16 21:51 | OR ---
SURGEON: Mary Hoskins D.O. DATE OF PROCEDURE: 01/16/2021 PRIMARY SURGEON: Mary Hoskins D.O. SUPERVISOR SHUTTLE PREPARATION: OR staff present: 1. Ema Magdaleno RT. 2. Ramesh Roberts RN. 3. Aldo Lopez RN. PREOPERATIVE DIAGNOSES: 1. Lumbar L5-S1 degenerative disk disease. 2. L5-S1 spondylolisthesis. 3. Chronic low back pain with bilateral lower extremities L5-S1 radiculopathy. POSTOPERATIVE DIAGNOSES: 1. Lumbar L5-S1 degenerative disk disease. 2. L5-S1 spondylolisthesis. 3. Chronic low back pain with bilateral lower extremities L5-S1 radiculopathy. PROCEDURES PERFORMED: 1. Right transforaminal epidural steroid injection at S1. 2. Left transforaminal epidural steroid injection at S1. 3. Fluoroscopic guidance for needle placement. 4. Local with oral Valium for sedation. SCREENING QUESTIONS: The patient answered "no" to all of the following questions: 1. Are you allergic to iodine, Betadine or latex? 2. Do you have a bleeding disorder? 3. Do you have any joint replacements, heart valve replacements, or a pacemaker? 4. Are you allergic to anti-inflammatories or blood thinners? 5. Do you have any current local or systemic infections? DESCRIPTION OF PROCEDURE: The patient had the procedure thoroughly explained including risks, benefits and alternatives. Consent was signed in my clinic indicating understanding and willingness to proceed. The patient presented to [facility] [place] where the patient was escorted to the dressing room to disrobe and change into a hospital gown. Preoperative vital signs were taken and stable. The patient reported that Valium was taken prior to the procedure. The patient was brought to the procedure room and placed in the prone position on the table. A pillow was placed under the abdomen in order to flatten the lumbar lordosis. The back was prepped with ChloraPrep and sterilely draped. All personnel in the operating room were dressed in appropriate attire including surgical scrubs, head and shoe covers. This was to ensure sterility while in the treatment room. During the time fluoroscopy was in use, all personnel in the operating room wore lead ware with thyroid collars. Sterile technique was used during the procedure. The fluoroscope was placed for the right S1 transforaminal epidural steroid injection. There was no sign of infection at the skin site for needle insertion. The skin was anesthetized with 2% lidocaine with a 27 gauge 1-1/2 inch needle. Then a 22 gauge 3-1/2 inch spinal needle, advanced to the right S1 foramen Under direct fluoroscopic guidance needle position was verified in three views; AP, oblique and lateral, with 0.2 cubic centimeters increments of Isovue-200 dye. No intravascular flow pattern was observed under live fluoroscopy. Then 6 milligrams of Celestone was slowly injected after negative aspiration of heme, cerebrospinal fluid and no paresthesias were noted. The needle was cleared prior to removal from the skin. The procedure was repeated for the left S1 transforamenal epidural injection. No adverse reactions were noted. The patient was brought to the recovery room awake and in good condition by my staff. The patient was monitored and discharge instructions were given after a brief stay in the recovery area. Both oral and written discharge and follow up instructions were given. The patient will follow up in the clinic in 3-4 weeks post procedure to evaluate the efficacy. The patient verbalized understanding including understanding of those signs and symptoms that would require emergency care and knows how to contact the office if there are any problems or questions in the meantime. PREOPERATIVE PAIN: 5/10. POSTOPERATIVE PAIN: 0/10. PLAN: Follow up in the pain clinic in 3 weeks. FERNANDO / PERRY /[id number] LISA
== END 2021-01-16 13:53 ==
LOC: MW.SDS 12:53
PROVIDERS: ATTEND Anesthesiology
DX: G89.29 Other chronic pain (principal); M51.16 Intervertebral disc disorders with radiculopathy, lumbar region; M47.26 Other spondylosis with radiculopathy, lumbar region; M53.3 Sacrococcygeal disorders, not elsewhere classified; M43.17 Spondylolisthesis, lumbosacral region; M51.17 Intervertebral disc disorders with radiculopathy, lumbosacral region; I10 Essential (primary) hypertension; Z79.899 Other long term (current) drug therapy; Z87.891 Personal history of nicotine dependence
CPT/HCPCS: 64483; J0702; J2795; Q9966

== ENCOUNTER 2021-06-25 08:31 | Day surgery (SDC) | payer BC, OTHER ==
--- NOTE | 2021-06-25 07:57 | PCM.PREANE ---
Preanesthetic Assessment - Procedure Proposed Procedure: Ventral Hernia Repair - Anesthesia/Transfusion/Family Hx Anesthesia History: Prior Anesthesia Without Reaction Family History of Anesthesia Reaction: No Transfusion History: No Prior Transfusion(s) - Review of Systems General: No Symptoms Pulmonary: No Symptoms (Quit smoking x 2 years) Cardiovascular: No Symptoms (HTN) Gastrointestinal: No Symptoms (GERD well controlled) Neurological: No Symptoms Other: Reports: None, Anxiety - Physical Assessment NPO Status Date: 06/24/21 NPO Status Time: 22:30 Height: 5 ft 8 in Weight: 93.44 kg ASA Class: 2 Mental Status: Alert & Oriented x3 Airway Class: Mallampati = 3 Dentition: Reports: Normal Dentition Thyro-Mental Finger Breadths: 3 Mouth Opening Finger Breadths: 3 ROM/Head Extension: Full Lungs: Clear to Auscultation, Normal Respiratory Effort Cardiovascular: Regular Rate, Regular Rhythm - Allergies Allergies/Adverse Reactions: Allergies Allergy/AdvReac Type Severity Reaction Status Date / Time No Known Allergies Allergy Verified 06/19/21 09:12 - Acknowledgements Anesthesia Type Planned: General Anesthesia Pt an Appropriate Candidate for the Planned Anesthesia: Yes Alternatives and Risks of Anesthesia Discussed w Pt/Guardian: Yes Pt/Guardian Understands and Agrees with Anesthesia Plan: Yes PreAnesthesia Questionnaire HEENT History: Reports: Other (See Below) Other HEENT History: wears glasses Cardiovascular History: Reports: Hypertension Respiratory History: Reports: None Gastrointestinal History: Reports: GERD Genitourinary History: Reports: None Musculoskeletal History: Reports: Fracture Other Musculoskeletal History: hx fx lumbar vertebrae and fx pelvis, occasional back pain Neurological History: Reports: Concussion Psychiatric History: Reports: None Endocrine/Metabolic History: Reports: Obesity/BMI 30+ Hematologic History: Reports: None Immunologic History: Reports: None Oncologic (Cancer) History: Reports: None Dermatologic History: Reports: None - Past Surgical History Head Surgeries/Procedures: Reports: None HEENT Surgical History: Reports: None Cardiovascular Surgical History: Reports: None Respiratory Surgical History: Reports: None GI Surgical History: Reports: Appendectomy, Colonoscopy, Hernia, Inguinal Male Surgical History: Reports: None Endocrine Surgical History: Reports: None Neurological Surgical History: Reports: None Musculoskeletal Surgical History: Reports: None Oncologic Surgical History: Reports: None Dermatological Surgical History: Reports: None - SUBSTANCE USE Tobacco Use Within Last Twelve Months: Other (See Below) Days Per Week of Alcohol Use: 7 Number of Drinks Per Day: 4 Total Drinks Per Week: 28 - HOME MEDS Home Medications: Home Meds Ascorbic Acid [Vitamin C] 1 tab PO DAILY 06/19/21 [History] Calcium Carbonate/Vitamin D3 [Calcium 250+D] 1 tab PO DAILY 06/19/21 [History] Losartan/Hydrochlorothiazide [Losartan-HCTZ 100-25 MG] 1 tab PO DAILY 06/19/21 [History] Diclofenac Sodium [Voltaren 1% Gel] 1 applic TOP ASDIRECTED PRN 06/20/21 [History] [place]-3/DHA/Epa/Fish Oil [Fish Oil 1,000 mg Softgel] 1 tab PO DAILY 06/20/21 [History] Pantoprazole Sodium [Protonix] 40 mg PO DAILY 06/20/21 [History] Sildenafil Citrate 20 mg PO ASDIRECTED PRN 06/20/21 [History] - CURRENT (IN HOUSE) MEDS Current Meds: Current Medications Albuterol (Albuterol 0.083% 2.5 Mg/3 Ml Neb Soln) 2.5 mg NEB ONETIME PRN PRN Reason: Wheezing Droperidol (Droperidol 5 Mg/2 Ml Sdv) 0.625 mg IVPUSH ONETIME PRN PRN Reason: Nausea/Vomiting Fentanyl (Fentanyl 100 Mcg/2 Ml Sdv) 50 mcg IVPUSH Q5M PRN PRN Reason: Pain (mild 1-3) Hydromorphone HCl (Hydromorphone 1 Mg/Ml Syringe) 1 mg IVPUSH Q10M PRN PRN Reason: Pain (moderate 4-6) Cefazolin Sodium/Dextrose 2 gm (/ Premix) 50 mls @ 100 mls/hr IV ONETIME DAVID Lactated Ringer's (Ringers, Lactated) 1,000 mls @ 125 mls/hr IV ASDIRECTED DAVID Metoclopramide HCl (Metoclopramide 10 Mg/2 Ml Sdv) 10 mg IVPUSH ONETIME PRN PRN Reason: Nausea/Vomiting Morphine Sulfate (Morphine 2 Mg/Ml Syringe) 2 mg IVPUSH Q10M PRN PRN Reason: Pain (severe 7-10) Naloxone HCl (Naloxone 0.4 Mg/Ml Sdv) 0.1 mg IVPUSH ASDIRECTED PRN PRN Reason: Respiratory Depression Ondansetron HCl (Ondansetron 4 Mg/2 Ml Sdv) 4 mg IVPUSH ONETIME PRN PRN Reason: Nausea/Vomiting Discontinued Medications Glycopyrrolate (Glycopyrrolate 0.2 Mg/Ml Sdv) Confirm Administered Dose 0.2 mg .ROUTE .STK-MED ONE Stop: 06/25/21 07:11 Ketorolac Tromethamine (Ketorolac 30 Mg/Ml Sdv) Confirm Administered Dose 30 mg .ROUTE .STK-MED ONE Stop: 06/25/21 07:11 Lidocaine (Lidocaine 2% 5 Ml Sdv) Confirm Administered Dose 5 ml .ROUTE .STK-MED ONE Stop: 06/25/21 07:11 Midazolam HCl (Midazolam 1 Mg/Ml 2 Ml Sdv) Confirm Administered Dose 2 mg .ROUTE .STK-MED ONE Stop: 06/25/21 07:10 Propofol (Propofol 200 Mg/20 Ml Sdv) Confirm Administered Dose 200 mg .ROUTE .STK-MED ONE Stop: 06/25/21 07:10 Rocuronium Colerain (Rocuronium Colerain 50 Mg/5 Ml Syringe) Confirm Administered Dose 50 mg .ROUTE .STK-MED ONE Stop: 06/25/21 07:11 Sugammadex Sodium (Sugammadex Sodium 200 Mg/2 Ml Vial) Confirm Administered Dose 200 mg .ROUTE .STK-MED ONE Stop: 06/25/21 07:11
[~2021-06-25 08:31] MED LIST changes: +Albuterol 0.083% 2.5 MG/3 ML Neb Soln NEB PRN; +Glycopyrrolate 0.2 MG/ML SDV ONE; +HYDROmorphone 1 MG/ML Syringe IVPUSH PRN; +Ketorolac 30 MG/ML SDV ONE; +Lidocaine 2% 5 ML SDV ONE; +Metoclopramide 10 MG/2 ML SDV IVPUSH PRN; +Midazolam 1 MG/ML 2 ML SDV ONE; +Morphine 2 MG/ML SYRINGE IVPUSH PRN; +Naloxone 0.4 MG/ML SDV IVPUSH PRN; +Ondansetron 4 MG/2 ML SDV IVPUSH PRN; +Propofol 200 MG/20 ML SDV ONE; +Rocuronium Bromide 50 MG/5 ML Syringe ONE; +Sugammadex Sodium 200 MG/2 ML VIAL ONE; +fentaNYL 100 MCG/2 ML SDV IVPUSH PRN
[2021-06-25] MEDS ORDERED: Bupivacaine 0.5% 10 ML SDV ONE (10:19)
[2021-06-25] MEDS ORDERED: ceFAZolin 1 GM Vial ONE ×2 (10:20→10:25)
[2021-06-25] MEDS ORDERED: Sodium Chloride 0.9% 20 ML ONE (10:25)
--- NOTE | 2021-06-25 12:01 | PCM.POSTAN ---
POST ANESTHESIA ASSESSMENT - MENTAL STATUS Mental Status: Alert, Oriented - VITAL SIGNS Vital Signs: Last Vital Signs Temp 97.5 F 06/25/21 08:45 Pulse 87 06/25/21 08:45 Resp 16 06/25/21 08:45 BP 139/79 06/25/21 08:45 Pulse Ox 95 06/25/21 08:45 - RESPIRATORY Respiratory Status: Respiratory Rate WNL, Airway Patent, O2 Saturation Stable - CARDIOVASCULAR CV Status: Pulse Rate WNL, Blood Pressure Stable - GASTROINTESTINAL GI Status: No Symptoms - PAIN Pain Score: 5 - POST OP HYDRATION Hydration Status: Adequate & Stable
[2021-06-25] MEDS ORDERED: Acetaminophen/HYDROcodone 325-5 MG Tab PO PRN (12:07)
[2021-06-25] MEDS ORDERED: Ondansetron 4 MG/2 ML SDV IVPUSH PRN (12:07)
--- NOTE | 2021-06-25 12:12 | PCM48HPAN ---
Post Anesthesia Note - EVALUATION WITHIN 48HRS OF ANESTHETIC Vital Signs in Normal Range: Yes Patient Participated in Evaluation: Yes Respiratory Function Stable: Yes Airway Patent: Yes Cardiovascular Function Stable: Yes Hydration Status Stable: Yes Pain Control Satisfactory: Yes Nausea and Vomiting Control Satisfactory: Yes Mental Status Recovered: Yes Vital Signs: Last Vital Signs Temp 97.3 F 06/25/21 11:57 Pulse 82 06/25/21 12:07 Resp 12 06/25/21 12:07 BP 127/79 06/25/21 12:07 Pulse Ox 94 L 06/25/21 12:07 - COMMENTS/OBSERVATIONS Free Text/Narrative:: Pt doing well post-op. VSS. No apparent anesthetic complications. Dr. Tristan Toledo
--- NOTE | 2021-06-25 12:13 | PCM.OPNOTE ---
- General Post-Op/Procedure Note Date of Surgery/Procedure: 06/25/21 Operative Procedure(s): Repair incarcerated ventral hernia with 4.3 cm Ventralex mesh Pre Op Diagnosis: Incarcerated ventral hernia Post-Op Diagnosis: Same Anesthesia Technique: General ET Tube (ASA II) Primary Surgeon: Herrera Valdez Silver Brazer: Herb Gomez Fluid Replacement, Intraop: 800 EBL in mLs: 10 Condition: Good Free Text/Narrative:: Intake & Output 06/25/21 06/25/21 06/25/21 03:59 11:59 19:59 Intake Total 900 Balance 900 DICTATION [id number] CPT CODE 84689/17763
[2021-06-25] MEDS ORDERED: Lactated Ringers 1,000 ML IV SCH (12:15)
[2021-06-25] MEDS ORDERED: Morphine 4 MG/ML Syringe IVPUSH PRN (12:19)
--- NOTE | 2021-06-25 16:25 | OR ---
SURGEON: Herrera Valdez M.D. DATE OF PROCEDURE: 06/25/2021 OPERATION PERFORMED: Repair, incarcerated ventral hernia with Ventralex mesh. PRIMARY SURGEON: Herrera Valdez M.D. 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 ANESTHESIA: General endotracheal. ASA CLASSIFICATION: II. PREOPERATIVE DIAGNOSIS: Incarcerated ventral hernia. POSTOPERATIVE DIAGNOSIS: Incarcerated ventral hernia. ESTIMATED BLOOD LOSS: 10 mL. INTRAOPERATIVE FLUID REPLACEMENT: 800 mL of crystalloid. DESCRIPTION OF PROCEDURE: The patient was taken to the operating room and placed on the operating table in the supine position. Time-out was called for appropriate identification of patient and procedure. The surgical site had been marked with the patient's assistance prior to him entering the operating room. Sequential compression boots were placed. Following satisfactory attainment of general endotracheal anesthesia, the abdomen was prepped with DuraPrep solution and sterile drapes were applied. The skin overlying the hernia was infiltrated with 10 mL of 0.5% Marcaine solution. Skin incision was then made and deepened into the subcutaneous tissue. The incarcerated hernia was noted in the subcutaneous tissue and this was gently circumferentially dissected using sharp dissection and electrocautery for hemostasis. Once the entire defect was mobilized, this was easily able to be reduced. The fascia was of reasonable quality and therefore it was felt that a Ventralex mesh would be sufficient. A 4.3 cm Ventralex mesh was placed into the 2 cm defect in an underlay technique and then secured with multiple interrupted horizontal mattress 0 Ethibond sutures. All sutures were placed under direct vision and held with hemostats until the final suture had been placed. Sutures were all secured. The patient was then given a Valsalva maneuver to 35 cm of water and the repair felt to be solid. The fascia overlying the mesh was now closed with interrupted 0 Ethibond suture after irrigating the wound with 1% Ancef solution. All sutures were cut to appropriate length. The subcutaneous tissue was reapproximated with running 3-0 Vicryl. The skin edges were reapproximated with subcuticular 4-0 Monocryl reinforced with half-inch Steri-Strips. The wound was dressed with a Tegaderm dressing. Sponge, needle, and instrument counts were all correct. The patient tolerated the procedure well. Following emergence from anesthesia and extubation, he was taken to recovery room in stable condition. ANDEWAY / MODL /[id number]
== END 2021-06-25 13:37 | disposition home or self-care (01) ==
LOC: MW.SDS 08:31
PROVIDERS: ATTEND Surgery
DX: K43.6 Other and unspecified ventral hernia with obstruction, without gangrene (principal); F41.9 Anxiety disorder, unspecified; I10 Essential (primary) hypertension; M79.89 Other specified soft tissue disorders; K21.9 Gastro-esophageal reflux disease without esophagitis; E66.9 Obesity, unspecified; Z79.899 Other long term (current) drug therapy; Z90.49 Acquired absence of other specified parts of digestive tract; Z98.890 Other specified postprocedural states; Z87.891 Personal history of nicotine dependence
CPT/HCPCS: 49561; 49568; C1781; J0690; J1885; J2250; J2270; J2370; J2704; J3490; J7120; 00790

== ENCOUNTER 2024-02-15 17:50 | Emergency (ER) | payer BC, OTHER ==
[2024-02-15 18:21] LABS: BASOPHILS ABSOLUTE AUTO 0.06 K/uL (0.00-0.20); BASOPHILS PERCENT AUTO 0.8 % (0.0-1.0); EOSINOPHILS ABSOLUTE AUTO 0.37 K/uL (0.00-0.45); EOSINOPHILS PERCENT AUTO 5.2 % (0.0-6.0); HEMATOCRIT 45.3 % (42.0-52.0); HEMOGLOBIN 15.8 g/dL (14.0-18.0); IMMATURE GRAN ABSOLUTE AUTO 0.02 K/uL (0.00-0.05); IMMATURE GRAN PERCENT AUTO 0.3 % (0.0-0.4); MEAN CORPUSCULAR HEMOGLOBIN 31.9 pg (28.0-32.0); MEAN CORPUSCULAR HGB CONC 34.9 g/dL (32.0-36.0); MEAN CORPUSCULAR VOLUME 91.5 fL (83.0-99.0); MEAN PLATELET VOLUME 11.1 fL (9.4-12.4); MONOCYTES PERCENT AUTO 15.4 % (0.0-8.0); NEUTROPHILS PERCENT AUTO 43.3 % (41.0-71.0); PLATELET COUNT,PLT 178 K/uL (150-400); RED BLOOD CELL COUNT 4.95 M/uL (4.52-5.90); WHITE BLOOD CELL COUNT,WBC 7.15 K/uL (3.9-11.3)
[2024-02-15 18:38] LABS: INR 1.09 (0.86-1.11); PTT,PARTIAL THROMBOPLSTIN TIME 28.8 SEC (23.9-30.7)
[2024-02-15 18:55] LABS: A/G RATIO 0.9 (0.9-1.6); ALBUMIN 3.5 g/dL (3.4-5.0); BILIRUBIN TOTAL 0.4 mg/dL (0.2-1.0); CALCIUM 8.8 mg/dL (8.5-10.1); CARBON DIOXIDE,CO2 25.7 mmol/L (21.0-32.0); CREATININE 0.9 mg/dL (0.8-1.3); EST CRCL DRUG DOSING (CG) 88.67 mL/min; PROTEIN TOTAL,TP 7.3 g/dL (6.4-8.2)
[2024-02-15] MEDS: Potassium Chloride 20 MEQ Tab.ER PO STA (21:51)
== END 2024-02-15 21:55 | disposition home or self-care (01) ==
LOC: MW.ED 17:50
DX: R55 Syncope and collapse (principal); E87.6 Hypokalemia; R06.02 Shortness of breath; I10 Essential (primary) hypertension; E78.2 Mixed hyperlipidemia; F17.210 Nicotine dependence, cigarettes, uncomplicated; Z79.899 Other long term (current) drug therapy; Z75.8 Other problems related to medical facilities and other health care
CPT/HCPCS: 36415; 70450; 71046; 72125; 80053; 80307; 82947; 83690; 84484; 85025; 85610; 85730; 93005; 99285; A9270; 93010